=== PATIENT | female | born 1985 | race Caucasian/White ===

== ENCOUNTER 2017-04-25 10:54 | Emergency (ER) | payer OTHER ==
[~2017-04-25] VITALS: Ht 165.1 cm; Wt 83.5 kg
[~2017-04-25 10:54] MED LIST: AZITHROMYCIN250 MG PO; CITALOPRAM HBR40 MG PO; CLONAZEPAM0.5 M2 PO; IBUPROFEN800 MG PO; ORTHO TRI-CYCLE1 TA2 PO; PREDNISONE 20MG20 MG PO; PROAIR HFA8.5 GM INH; ROBITUSSIN W/CO10 ML PO
[2017-04-25 11:41] VITALS: BP 141/88
[2017-04-25 12:10] LABS: ABSOLUTE BASOPHIL COUNT 0 /CUMM (0.0-0.2); ABSOLUTE EOSINOPHIL COUNT 0 /CUMM (0.0-0.7); ABSOLUTE GRANULOCYTE CT 6.5 /CUMM (1.4-6.5); ABSOLUTE LYMPH COUNT 2.2 /CUMM (1.2-3.4); ABSOLUTE MONOCYTE COUNT 0.4 /CUMM (0.10-0.60); BASOPHIL % 0.4 % (0.0-2.0); EOSINOPHIL % 0.4 % (0-5); GRANULOCYTE % 71.1 % (42.2-75.2); HEMATOCRIT 40.1 % (37-47); MEAN CORPUSCULAR HGB 28.5 PG (27.0-31.0); MEAN CORPUSCULAR VOLUME 83.9 FL (81.0-99.0); MEAN PLATELET VOLUME 9.1 FL (7.4-10.4); PLATELET COUNT 302 /CUMM (130-400); RBC DISTRIBUTION WIDTH 12.7 % (11.5-14.5); RED BLOOD CELL CT 4.78 /CUMM (4.20-5.40); WHITE BLOOD CELL COUNT 9.1 /CUMM (4.8-10.8)
--- NOTE | 2017-04-25 13:09 | ED DYSPNEA/ASTHMA COMPLAINT ---
History of Present Illness General Chief Complaint: General Adult Stated Complaint: SOB Source: patient, old records Exam Limitations: no limitations Vital Signs & Intake/Output Vital Signs & Intake/Output Vital Signs Date Time Temp Pulse Resp B/P B/P Pulse O2 O2 Flow FiO2 Mean Ox Delivery Rate 04/25 1311 99 Room Air 04/25 1141 98.9 80 18 141/88 99 Room Air Allergies Coded Allergies: NO KNOWN ALLERGIES (01/10/15) Reconcile Medications Albuterol Sulfate (Proair Hfa) 90 MCG HFA.AER.AD 2 PUF INH Q4-6 PRN PRN ASTHMA (Reported) Albuterol Sulfate (Proair Hfa) 90 MCG HFA.AER.AD 2 PUF INH Q4-6 PRN PRN asthma Citalopram Hydrobromide (Citalopram HBr) 40 MG TABLET 1 TAB PO DAILY ANXIETY / DEPRESSION (Reported) Clonazepam 0.5 MG TABLET 1 TAB PO 4X PER DAY ANXIETY (Reported) Methylprednisolone. (Medrol) 4 MG TAB.DS.PK 1 DP PO AD asthma 6 on day 1 then reduce by one tablet daily until gone NORGESTIMATE-ETHINYL ESTRADIOL (Ortho Tri-Cyclen Lo Tablet) 1 TAB TAB 1 TAB PO DAILY CONTROL (Reported) Ondansetron (Zofran Odt) 4 MG TAB.RAPDIS 1 TAB SL TID PRN nausea Triage Note: PT STATES THAT SHE HAS A HISTORY OF ASTHMA AND THAT SHE HAS BEEN FEELING SOB SINCE LAST PM, NO WHEEZING NOTED. O2 SAT 99 % ON RA. PT NOW STATES THAT SHE IS HAVING L SIDE CP THAT STRATED LAST PM. Triage Nurses Notes Reviewed? yes Onset: Abrupt Duration: day(s): (1.5), better, constant Timing: recent history Severity: mild Prior Episodes/Possible Cause: occasional episodes Modifying Factors: Worsens With: other (denies). Associated Symptoms: fever, wheezing : No Patient currently breastfeeds: No HPI: 32-year-old female past history of asthma when she was younger presents to the ER for evaluation complaining of chills objective fevers shortness of breath wheezing for the past 1 day since last night. She reports her son is been home sick with similar symptoms she states that she used her son's nebulizer without improvement and had 2 episodes of vomiting. She denies any abdominal pain diarrhea. She denies any shortness of breath at this time. Her chest pain has resolved. She has been tolerating fluids. No fever no chills here in triage she does not smoke. (Maulik Chambers) Past History Travel History Traveled to [place] past 21 day No Medical History Any Pertinent Medical History? 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 No (Maulik Chambers) Review of Systems Review of Systems Constitutional: Reports: see HPI. Comments Review of systems: See HPI, All other systems negative. Constitutional, chills no fever, HEENT: no sore throat no congestion Cardiovascular: chest pain , no palpitation Skin: no rashes, no change in skin Respiratory: dyspnea no cough no sputum GI: nausea vomiting, no diarrhea : No dysuria Muscle skeletal: No joint pain, no back pain Neurologic: , no headache Heme/endocrine: No bruising Immunology: No lymphadenopathy (Maulik Chambers) Physical Exam Physical Exam General Appearance: well developed/nourished, no apparent distress, alert Respiratory: chest non-tender Comments: Well-developed well-nourished person in no acute distress Head/Face: Atraumatic, no maxillary/frontal sinus tenderness, no facial swelling Eyes: PERRL, EOMI, no conjunctival injection. No nystagmus Ear:External auditory canal and Tympanic membranes clear, no erythema, no FB. Nose: atraumatic.Normal inspection: No bleeding, no septal hematoma Throat: Moist mucous membranes.Pharynx normal. No pharyngeal erythema/exudate seen. No stridor/drooling or assymetry. No swelling or edema. Neck: Supple, no lymphadenopathy, FROM Back Full range of motion Cardiovascular: Regular rate and rhythms no murmurs Respiratory: No respiratory distress. Patient speaking in full complete sentences. Breath sounds clear to auscultation bilaterally: NO W/R/R Abdomen: Soft, nontender nondistended Extremity: No edema, full range of motion of extremities Neuro: Alert oriented x3, motor sensory normal, cranial nerves II through XII grossly intact. There were no obvious focal neurologic abnormalities. Skin: No appreciable rash on exposed skin, skin is warm and dry. Psych: Mood and affect is normal, memory and judgment is normal. Core Measures ACS in differential dx? Yes CVA/TIA Diagnosis No Sepsis Present: No Sepsis Focused Exam Completed? No All Positive = PERC Ruled Out: Positive: age < 50 years, heart rate < 100 bpm, O2 sat > 94%, no hemoptysis, no hormone use, no prior DVT or PE, no unilateral leg swellin, no surgery/trauma w/ in 4w. (Scotty INTERIANO,Maulik) Progress Differential Diagnosis: asthma, AMI, pericarditis, pulmonary embolism, pneumonia , pneumothorax Plan of Care: Orders Procedure Date/time Status RAPID VIRAL INFLUENZA A 04/25 1336 Complete TROPONIN LEVEL 04/25 1145 Complete HUMAN BETA HCG SCREEN 04/25 1145 Complete COMPREHENSIVE METABOLIC PANEL 04/25 1145 Complete CBC WITHOUT DIFFERENTIAL 04/25 1145 Complete EKG 04/25 1145 Active Laboratory Tests 04/25/17 1158: CBC w Diff NO MAN DIFF REQ, RBC 4.78, MCV 83.9, MCH 28.5, MCHC 34.0, RDW 12.7, MPV 9.1, Gran % 71.1, Lymphocytes % 23.7, Monocytes % 4.4, Eosinophils % 0.4, Basophils % 0.4, Absolute Granulocytes 6.5, Absolute Lymphocytes 2.2, Absolute Monocytes 0.4, Absolute Eosinophils 0, Absolute Basophils 0 04/25/17 1154: Total Beta HCG Cancelled 04/25/17 1145: Anion Gap 15, Estimated GFR > 60, BUN/Creatinine Ratio 10.0, Glucose 90, Calcium 9.7, Total Bilirubin 0.3, AST 22, ALT 34, Alkaline Phosphatase 57, Troponin I < 0.01, Total Protein 7.3, Albumin 4.7, Globulin 2.6, Albumin/Globulin Ratio 1.8, Total Beta HCG NEGATIVE Microbiology 04/25 1351 NASOPHARYN: Influenza Virus A & B Rapid Smear - COMP Labs were ordered from triage as well as a chest x-ray patient speaking in full complete sentences denies any shortness breath on my evaluation she states she took her son's nebulizer at home and see if that made her have tingling in her fingers and is declining second treatment. 1400 I discussed the patient and her mother at length all of her results she feels comfortable plan and discharge she'll follow with her primary care physician and return precautions were discussed separately cleared for discharge Diagnostic Imaging: Viewed by Me: Radiology Read. Discussed w/RAD: Radiology Read. Radiology Impression: PATIENT: LUCY TODD PRESENT AGE: 32 PATIENT ACCOUNT NO: [id number] : 85 LOCATION: [facility] ORDERING PHYSICIAN: Noe Torres DO SERVICE DATE: 04/25/17 EXAM TYPE: RAD - XRY-CHEST XRAY, TWO VIEWS EXAMINATION: XR CHEST CLINICAL INFORMATION : Left-sided chest pain and shortness of breath. COMPARISON: 01/10/2015 TECHNIQUE: 2 views of the chest were obtained. FINDINGS: The lungs are well- inflated and clear. Trachea is midline in position. No evidence of interstitial lung disease, focal consolidation, mass or pleural effusion. The cardiomediastinal silhouette and pulmonary germain have normal size and contour. The visualized bones are normal. The visualized upper abdomen is normal. IMPRESSION: Unremarkable examination. DICTATED BY: Jean Faria MD DATE/TIME DICTATED:04/25/171327 BOAT FINISHER:HUMBERTO DATE/TIME TRANSCRIBED:1327 CONFIDENTIAL, DO NOT COPY WITHOUT APPROPRIATE AUTHORIZATION. < Electronically signed in Other Vendor System> SIGNED BY: Jean Faria MD 04/25/17 1332 Initial ED EKG: normal intervals, normal p-waves, normal QRS complex, normal sinus rhythm (70), nonspecific ST T wave chg Prior EKG: unchanged (Scotty INTERIANO,Maulik) Departure Departure Time of Disposition: 1415 Disposition: HOME OR SELF CARE Condition: Stable Clinical Impression Primary Impression: Viral syndrome Referrals: Mj Tejada MD (PCP/Family) Additional Instructions: medrol dose lili and albuterol inhaler as directed. zofran for nausea. drink plenty of fluids, bland diet, follow upwith your pmd, return with any concerns Departure Forms: Customer Survey General Discharge Information Prescriptions: Current Visit Scripts Ondansetron (Zofran Odt) 1 TAB SL TID PRN nausea #10 TAB Methylprednisolone. (Medrol) 1 DP PO AD #1 DP 6 on day 1 then reduce by one tablet daily until gone Albuterol Sulfate (Proair Hfa) 2 PUF INH Q4-6 PRN PRN asthma #1 INHAL (Maulik Chambers) PA/RETINAL ANGIOGRAPHER Co-Sign Statement Statement: ED Attending supervision documentation- x I saw and evaluated the patient. I have also reviewed all the pertinent lab results and diagnostic results. I agree with the findings and the plan of care as documented in the PA's/RETINAL ANGIOGRAPHER's documentation. [] I have reviewed the ED Record and agree with the PA's/RETINAL ANGIOGRAPHER's documentation. [] Additions or exceptions (if any) to the PAs/RETINAL ANGIOGRAPHER's note and plan are summarized below: [] (Guille NARVAEZ,John) Critical Care Note Critical Care Note Critical Care Time: non-applicable (Maulik Chambers)
--- NOTE | 2017-04-25 13:32 | RADIOLOGY REPORT ---
EXAMINATION: XR CHEST CLINICAL INFORMATION: Left-sided chest pain and shortness of breath. COMPARISON: 01/10/2015 TECHNIQUE: 2 views of the chest were obtained. FINDINGS: The lungs are well-inflated and clear. Trachea is midline in position. No evidence of interstitial lung disease, focal consolidation, mass or pleural effusion. The cardiomediastinal silhouette and pulmonary germain have normal size and contour. The visualized bones are normal. The visualized upper abdomen is normal. IMPRESSION: Unremarkable examination.
[2017-04-25] MEDS ORDERED: MEDROL4 M2 PO (14:16)
[2017-04-25] MEDS ORDERED: PROAIR HFA8.5 GM INH (14:16)
[2017-04-25] MEDS ORDERED: ZOFRAN ODT4 M1 SL (14:16)
== END 2017-04-25 14:24 ==
LOC: ERH 10:54
PROVIDERS: Emergency Medicine
DX: B34.9 Viral infection, unspecified (principal)
CPT/HCPCS: 71046; 87804; 87804-59; 93005; 93010; J3101